=== PATIENT | male | born 1970 | race Caucasian/White ===

== ENCOUNTER → 2016-09-25 | Outpatient (CLI) | payer OTHER ==
--- NOTE | 2016-09-25 10:38 | REP ---
CHEST, TWO VIEWS: No comparison. PA and lateral views of the chest are performed. There is no acute infiltrate. The lungs appear clear. The heart is normal in size. There is tortuosity of the thoracic aorta. There are mild degenerative changes of the spine. IMPRESSION: No acute pulmonary disease. Signed by Dallas Regalado MD 09/25/2016 01:28 P
[2016-09-25 13:08] LABS: MEAN CORPUSCULAR HEMOGLOBIN 32.7 pg (27.0-33.0); MEAN CORPUSCULAR HGB CONC 34.5 g/dl (32.0-36.5); MEAN CORPUSCULAR VOLUME 94.8 fl (80.0-96.0); RED CELL DISTRIBUTION WIDTH 12.6 % (11.5-14.5); WHITE BLOOD COUNT 7.2 K/mm3 (4.0-10.0)
[2016-09-25 13:12] LABS: ANION GAP 10 MEQ/L (8-16); BLOOD UREA NITROGEN 20 MG/DL (7-18); CALCIUM LEVEL 8.8 MG/DL (8.5-10.1); CARBON DIOXIDE LEVEL 28 MEQ/L (21-32); CHLORIDE LEVEL 104 MEQ/L (98-107); CREATININE FOR GFR 1.27 MG/DL (0.70-1.30); GLOMERULAR FILTRATION RATE > 60.0 (>60); GLUCOSE, FASTING 66 MG/DL (70-105); POTASSIUM SERUM 4.2 MEQ/L (3.5-5.1); SODIUM LEVEL 142 MEQ/L (136-145)
[2016-09-25 13:13] LABS: INR 1.09
== END ==
LOC: M SMT 09:23
PROVIDERS: ATTEND Nurse Practitioner Women's Health
DX: R97.20 Elevated prostate specific antigen [PSA] (principal); Z01.818 Encounter for other preprocedural examination

== ENCOUNTER → 2016-10-13 | Day surgery (SDC) | payer OTHER ==
[~2016-10-13] VITALS: Ht 180.3 cm; Wt 99.8 kg
[~2016-10-13] MED LIST: BUPIVACAINE HCL 0.25% 30 ML VIAL As Ordered ONE; BUPIVACAINE HCL 0.25% 30 ML VIAL XX ONE; FISH1000 PO; LIDOCAINE 1% MDV 20ML VIAL As Ordered ONE; LIDOCAINE 1% SDV INJ 30 ML VIAL XX ONE; MIDAZOLAM INJ 2 MG/2 ML VIAL (J2250) As Ordered ONE; ONDANSETRON 4MG/2ML VIAL (J2405) As Ordered ONE; PROPOFOL 200 MG/20 ML VIAL As Ordered ONE; UNIS25TA2 PO; fentaNYL 100 MCG/2 ML INJECTION (J3010) As Ordered ONE
[2016-10-13 10:40] VITALS: BP 110/60
--- NOTE | 2016-10-13 10:54 | REP ---
Prostate sonography: History: Elevated PSA. Sonographic findings: Trans rectal prostate sonography demonstrates unremarkable seminal vesicles. Prostate gland is minimally enlarged . No peripheral zone nodule or lesions seen. Glandular dimensions are measured at 3.4 x 2.0 x 4.1 cm with a calculated glandular volume of 14.2 ml. Transrectal sonographic guidance provided to Dr. Parra who performed trans rectal ultrasound guided needle biopsy procedure . Signed by Toy Herzog MD 10/13/2016 10:46 A
--- NOTE | 2016-10-13 14:53 | RO ---
DATE OF PROCEDURE: 10/13/2016 PREPROCEDURE DIAGNOSIS: PSA elevation. POSTPROCEDURE DIAGNOSIS: PSA elevation. SURGERY PERFORMED: Transrectal ultrasound of the prostate guided biopsy with periprostatic nerve block. SURGEON: Jason Parra MD [employer]: None. ANESTHESIA: LMA. COMPLICATIONS: None. ESTIMATED BLOOD LOSS: N/A. HISTORY OF PRESENT ILLNESS: 46-year-old male patient with a history of PSA elevation. For this reason, he has consented to have a transrectal ultrasound prostate biopsy. DESCRIPTION OF PROCEDURE: With the patient in decubital lateral position under anesthesia, after introducing the transrectal ultrasound probe and finding the prostate gland, we found the prostatic seminal vesicle angle. We placed 5 mL of a mixture of Lidocaine 1% and Marcaine 0.25% to each prostatic seminal vesicle angle to perform a periprostatic nerve block. We then proceeded to actually do a 12 core prostate biopsy. We took biopsies from the base, base lateral, mid lateral, apex, apex lateral bilaterally. There were no complications of the surgery. Then we extracted the transrectal ultrasound probe and the patient will go home today. He will followup in one week. He will continue taking his antibiotic as prescribed. There were no complications during surgery.
== END | disposition home or self-care (01) ==
LOC: M SDC 06:35
PROVIDERS: ATTEND Urology
DX: R97.20 Elevated prostate specific antigen [PSA] (principal); Z80.42 Family history of malignant neoplasm of prostate; Z47.33 Aftercare following explantation of knee joint prosthesis; M10.9 Gout, unspecified
CPT/HCPCS: 55700; 64450; 76872; 76942; 76998; G0416; J0690; J2250; J2405; J3010

== ENCOUNTER → 2017-02-18 | Outpatient (CLI) | payer OTHER ==
[~2017-02-18] MED LIST changes: -BUPIVACAINE HCL 0.25% 30 ML VIAL As Ordered ONE; -BUPIVACAINE HCL 0.25% 30 ML VIAL XX ONE; -LIDOCAINE 1% MDV 20ML VIAL As Ordered ONE; -LIDOCAINE 1% SDV INJ 30 ML VIAL XX ONE; -MIDAZOLAM INJ 2 MG/2 ML VIAL (J2250) As Ordered ONE; -ONDANSETRON 4MG/2ML VIAL (J2405) As Ordered ONE; -PROPOFOL 200 MG/20 ML VIAL As Ordered ONE; -fentaNYL 100 MCG/2 ML INJECTION (J3010) As Ordered ONE
[2017-02-20 00:19] LABS: PSA % FREE 8.8 % (.); PSA FREE 0.38 ng/mL; PSA TOTAL 4.3 ng/mL (0.0-4.0)
== END ==
LOC: M SMT 12:09
PROVIDERS: ATTEND Urology
DX: R97.20 Elevated prostate specific antigen [PSA] (principal)

== ENCOUNTER → 2018-03-11 | Outpatient (CLI) | payer OTHER ==
[2018-03-12 15:28] LABS: PSA % FREE 7.2 % (.); PSA FREE 0.72 ng/mL
== END ==
LOC: M SMT 10:12
DX: R97.20 Elevated prostate specific antigen [PSA] (principal)
CPT/HCPCS: 84154

== ENCOUNTER → 2018-03-15 | Outpatient (CLI) | payer OTHER ==
[2018-03-15 14:14] LABS: ANION GAP 7 MEQ/L (8-16); BLOOD UREA NITROGEN 16 MG/DL (7-18); CALCIUM LEVEL 9.7 MG/DL (8.5-10.1); CARBON DIOXIDE LEVEL 30 MEQ/L (21-32); CHLORIDE LEVEL 106 MEQ/L (98-107); CREATININE FOR GFR 1.14 MG/DL (0.70-1.30); GLOMERULAR FILTRATION RATE > 60.0 (>60); GLUCOSE, FASTING 85 MG/DL (70-100); POTASSIUM SERUM 4.5 MEQ/L (3.5-5.1); SODIUM LEVEL 143 MEQ/L (136-145)
== END ==
LOC: M SMT 10:52
DX: R97.20 Elevated prostate specific antigen [PSA] (principal)
CPT/HCPCS: 80048

== ENCOUNTER → 2018-06-07 | Outpatient (CLI) | payer OTHER ==
[~2018-06-07] MED LIST changes: -FISH1000 PO; +ISOVUE-370 76% 100ML VIAL (Q9967) As Ordered; -UNIS25TA2 PO
== END ==
LOC: M RAD 08:21
DX: C61 Malignant neoplasm of prostate (principal)
CPT/HCPCS: Q9967

== ENCOUNTER → 2020-03-01 | Outpatient (CLI) | payer BC ==
[~2020-03-01] MED LIST changes: +FISH1000 PO; -ISOVUE-370 76% 100ML VIAL (Q9967) As Ordered; +UNIS25TA3 PO
== END ==
LOC: M PLALAB 11:14
PROVIDERS: ATTEND Nurse Practitioner Women's Health
DX: C61 Malignant neoplasm of prostate (principal)

== ENCOUNTER → 2020-06-11 | Outpatient (CLI) | payer BC, OTHER | LOC: M PLALAB 10:02 | PROVIDERS: ATTEND Nurse Practitioner Women's Health | DX: C61 Malignant neoplasm of prostate (principal) ==

== ENCOUNTER → 2020-09-23 | Outpatient (CLI) | payer BC | LOC: M PLALAB 11:57 | PROVIDERS: ATTEND Nurse Practitioner Women's Health | DX: Z85.46 Personal history of malignant neoplasm of prostate (principal) ==

== ENCOUNTER → 2020-09-27 | Outpatient (REF) | payer BC ==
[2020-09-27 12:27] LABS: ALBUMIN 4.1 GM/DL (3.2-5.2); ALT/SGPT 75 U/L (12-78); BILIRUBIN,TOTAL 0.6 MG/DL (0.2-1.0); BLOOD UREA NITROGEN 15 MG/DL (7-18); CALCIUM LEVEL 9.3 MG/DL (8.5-10.1); CARBON DIOXIDE LEVEL 29 MEQ/L (21-32); CHLORIDE LEVEL 105 MEQ/L (98-107); CHOLESTEROL LEVEL 238 MG/DL (<200); CHOLESTEROL RISK RATIO 4.958 (<5); CREATININE FOR GFR 1.14 MG/DL (0.70-1.30); GLOMERULAR FILTRATION RATE > 60.0 (>56); GLUCOSE, FASTING 84 MG/DL (70-100); HDL CHOLESTEROL 48 MG/DL (>40); LDL CHOLESTEROL 168 MG/DL (<100); NON-HDL-C 190 MG/DL; POTASSIUM SERUM 4.5 MEQ/L (3.5-5.1); SODIUM LEVEL 139 MEQ/L (136-145); TOTAL PROTEIN 7.3 GM/DL (6.4-8.2); TRIGLYCERIDES LEVEL 111 MG/DL (<150); URIC ACID 6.9 MG/DL (3.5-7.2)
== END ==
LOC: M SFHCCLAY 09:07
PROVIDERS: ATTEND Family Medicine
DX: E78.2 Mixed hyperlipidemia (principal); Z87.39 Personal history of other diseases of the musculoskeletal system and connective tissue

== ENCOUNTER → 2020-10-08 | Outpatient (CLI) | payer BC ==
--- NOTE | 2020-10-08 14:40 | REP ---
INDICATION: TEAR OF LEFT ROTATOR CUFF. COMPARISON: None. TECHNIQUE: Coronal oblique T1, T2 fat sat, sagittal oblique T2 fat sat, axial T2 fat sat, gradient echo. FINDINGS: Rotator cuff: Complete tears are noted of the supraspinatus and infraspinatus tendons. There is medial retraction of the musculotendinous junctions, at least 5 cm. There is a partial tear of the subscapularis tendon. Acromioclavicular joint: There is moderate hypertrophic degenerative change of the acromioclavicular joint. Erosive change is noted of the undersurface of the acromion due to a high riding humeral head. Acromion: Type 2 Biceps Tendon: Long head of the biceps tendon is displaced medially out of the bicipital groove. There is mild increased signal on T2 weighted images involving the proximal aspect of the tendon suggesting tendinitis or partial tear. Hill Sach's deformity: None. Deltoid muscle: No abnormal signal. Biceps labral complex: There is fraying of the biceps labral complex. Labrum: There is fraying, tearing and truncation of portions of the entire labrum. Cartilage: There is moderate diffuse chondromalacia at the glenohumeral joint. Bone marrow: No abnormal signal. Joint fluid: There is moderate joint effusion. There is a calcific body which is oval in shape located at the superior anterior margin of the humeral head measuring approximately 7 x 14 x 20 mm. IMPRESSION: Complete tears of supraspinatus and infraspinatus tendons with retraction. Partial tear subscapularis tendon. Moderate hypertrophic degenerative change acromioclavicular joint. Long head of the biceps tendon is displaced medially out of the bicipital groove, with findings suggesting tendinitis or partial tear of the proximal aspect. There is fraying of the biceps labral complex. There is fraying, tearing and truncation of portions of the entire labrum. Moderate chondromalacia glenohumeral joint. Moderate joint effusion. Calcific body at the anterior superior margin of the humeral head. <Electronically signed by Dallas Regalado > 10/08/20 [id number]
== END ==
LOC: M RAD 12:32
PROVIDERS: ATTEND Family Medicine
DX: M75.122 Complete rotator cuff tear or rupture of left shoulder, not specified as traumatic (principal); R29.898 Other symptoms and signs involving the musculoskeletal system; M94.212 Chondromalacia, left shoulder

== ENCOUNTER → 2021-03-04 | Outpatient (REF) | payer BC | LOC: M PLALAB 15:17 | PROVIDERS: ATTEND Nurse Practitioner Women's Health | DX: Z85.46 Personal history of malignant neoplasm of prostate (principal) ==

== ENCOUNTER → 2021-09-29 | Outpatient (CLI) | payer BC | LOC: M PLALAB 12:57 | PROVIDERS: ATTEND Nurse Practitioner Women's Health | DX: Z85.46 Personal history of malignant neoplasm of prostate (principal) ==

== ENCOUNTER → 2022-03-25 | Outpatient (CLI) | payer BC | LOC: M PLALAB 14:22 | PROVIDERS: ATTEND Nurse Practitioner Women's Health | DX: Z85.46 Personal history of malignant neoplasm of prostate (principal) ==

== ENCOUNTER → 2022-09-23 | Outpatient (CLI) | payer BC | LOC: M PLALAB 13:24 | PROVIDERS: ATTEND Nurse Practitioner Women's Health | DX: Z85.46 Personal history of malignant neoplasm of prostate (principal) ==

== ENCOUNTER → 2022-11-27 | Outpatient (REF) | payer BC ==
[2022-11-27 17:45] LABS: ALBUMIN 4.2 G/DL (3.2-5.2); ALKALINE PHOSPHATASE 74 U/L (46-116); ALT/SGPT 34 U/L (7.0-40); AST/SGOT 26 U/L (<34); BILIRUBIN,TOTAL 0.6 MG/DL (0.3-1.2); BLOOD UREA NITROGEN 17 MG/DL (9-23); CALCIUM LEVEL 9.4 MG/DL (8.5-10.1); CARBON DIOXIDE LEVEL 29 MMOL/L (20-31); CHLORIDE LEVEL 103 MMOL/L (98-107); CHOLESTEROL LEVEL 194 MG/DL (<200); CHOLESTEROL RISK RATIO 3.63 (<5); CREATININE FOR GFR 0.98 MG/DL (0.70-1.30); GLOMERULAR FILTRATION RATE > 60.0 (>56); GLUCOSE, FASTING 80 MG/DL (60-100); HDL CHOLESTEROL 53.4 MG/DL (>40); LDL CHOLESTEROL 122.8 MG/DL (<100); NON-HDL-C 140.6 MG/DL; POTASSIUM SERUM 4.6 MMOL/L (3.5-5.1); SODIUM LEVEL 140 MMOL/L (136-145); TRIGLYCERIDES LEVEL 89 MG/DL (<150)
== END ==
LOC: M SFHCCLAY 10:28
PROVIDERS: ATTEND Family Medicine
DX: E78.2 Mixed hyperlipidemia (principal)

== ENCOUNTER → 2022-12-10 | Outpatient (CLI) | payer BC ==
[~2022-12-10] MED LIST changes: +MULT-90 PO; +TADA5TAB; +[UNRECOGNIZED DRUG - CODE] IC
== END ==
LOC: M EKG 08:28
PROVIDERS: ATTEND Surgery
DX: G47.33 Obstructive sleep apnea (adult) (pediatric) (principal)

== ENCOUNTER → 2022-12-11 | Outpatient (CLI) | payer BC | LOC: M LABSMTC 09:05 | PROVIDERS: ATTEND Anesthesiology | DX: Z01.812 Encounter for preprocedural laboratory examination (principal); Z20.822 Contact with and (suspected) exposure to COVID-19 ==

== ENCOUNTER 2022-12-16 08:46 | Day surgery (SDC) | payer BC ==
[~2022-12-16] VITALS: Ht 182.9 cm; Wt 103.4 kg
[~2022-12-16 08:46] MED LIST changes: +CelecoXIB 400 MG CAP PO ONE; +LIDOCAINE 2% 100MG/5ML SDV (FOR ANES.) As Ordered ONE; +MIDAZOLAM INJ 2MG/2ML VIAL As Ordered ONE; +ROCURONIUM BROMIDE 50MG/5ML VIAL As Ordered ONE; -TADA5TAB; +TADA5TAB PO; +ceFAZolin SOD 2 GM in IV 1 EA IV ONE; +fentaNYL 250 MCG/5 ML INJECTION As Ordered ONE; +propofoL 200 MG/20 ML VIAL As Ordered ONE
[2022-12-16] MEDS ORDERED: LR 1,000 ML IV SCH ×2 (09:00→12:30)
[2022-12-16] MEDS ORDERED: BUPIVACAINE HCL 0.25% 30ML VIAL As Ordered ONE (09:46)
[2022-12-16] MEDS ORDERED: LIDOCAINE 1% SDV 30ML VIAL As Ordered ONE (09:46)
[2022-12-16] MEDS ORDERED: ROCURONIUM BROMIDE 50MG/5ML VIAL As Ordered ONE (10:30)
[2022-12-16] MEDS ORDERED: ACETAMINOPHEN 1000MG 100ML IV BAG As Ordered ONE (10:30)
[2022-12-16] MEDS ORDERED: KETOROLAC 60MG 2ML VIAL As Ordered ONE (10:30)
[2022-12-16] MEDS ORDERED: HYDROmorphone HCL 2MG/ML 1ML VIAL As Ordered ONE (10:30)
[2022-12-16] MEDS ORDERED: ONDANSETRON 4MG 2ML VIAL As Ordered ONE (10:30)
[2022-12-16] MEDS ORDERED: ePHEDrine SULFATE 25 MG/5 ML(5MG/ML) SYRINGE As Ordered ONE (10:58)
[2022-12-16] MEDS ORDERED: ONDANSETRON 4MG 2ML VIAL IV PRN (12:30)
[2022-12-16] MEDS ORDERED: HYDROMORPHONE HCL 0.5 MG/ 0.5 ML SYRINGE IV PRN (12:30)
[2022-12-16] MEDS ORDERED: fentaNYL 100 MCG/2 ML INJECTION IV PRN (12:30)
[2022-12-16] MEDS: oxyCODONE 5MG TAB PO PRN ×2 (13:28→13:58)
[2022-12-16 14:30] VITALS: BP 141/78
== END 2022-12-16 14:39 | disposition home or self-care (01) ==
LOC: M SDC 08:46
PROVIDERS: ATTEND Surgery
DX: K40.90 Unilateral inguinal hernia, without obstruction or gangrene, not specified as recurrent (principal); G47.33 Obstructive sleep apnea (adult) (pediatric); M10.9 Gout, unspecified; Z79.899 Other long term (current) drug therapy; Z85.46 Personal history of malignant neoplasm of prostate
CPT/HCPCS: 49650; C1781; J0131; J0690; J1100; J1170; J1885; J2250; J2405; J3010; S0020; S2900

== ENCOUNTER → 2023-02-02 | Outpatient (CLI) | payer BC ==
[~2023-02-02] MED LIST changes: -CelecoXIB 400 MG CAP PO ONE; +LIDOCAINE 1% MDV 20ML VIAL As Ordered ONE; -LIDOCAINE 2% 100MG/5ML SDV (FOR ANES.) As Ordered ONE; -MIDAZOLAM INJ 2MG/2ML VIAL As Ordered ONE; -ROCURONIUM BROMIDE 50MG/5ML VIAL As Ordered ONE; +[UNRECOGNIZED DRUG - CODE] IC; -ceFAZolin SOD 2 GM in IV 1 EA IV ONE; -fentaNYL 250 MCG/5 ML INJECTION As Ordered ONE; -propofoL 200 MG/20 ML VIAL As Ordered ONE
[2023-02-02 10:56] VITALS: BP 175/87
== END ==
LOC: M IRPRO 09:45
PROVIDERS: ATTEND Otolaryngology
DX: E04.1 Nontoxic single thyroid nodule (principal)

== ENCOUNTER → 2023-04-02 | Outpatient (CLI) | payer BC ==
[~2023-04-02] MED LIST changes: -LIDOCAINE 1% MDV 20ML VIAL As Ordered ONE
== END ==
LOC: M PLALAB 13:12
PROVIDERS: ATTEND Physician Assistant
DX: Z85.46 Personal history of malignant neoplasm of prostate (principal)

== ENCOUNTER → 2023-04-02 | Outpatient (CLI) | payer BC ==
[2023-04-02 15:54] LABS: FREE T4 1.22 NG/DL (0.89-1.76); THYROID PEROXIDASE ANTIBODY < 28.0 U/ML (<60.0); TOTAL T3 102.4 NG/DL (60.0-181.0)
== END ==
LOC: M PLALAB 13:09
PROVIDERS: ATTEND Otolaryngology
DX: E04.1 Nontoxic single thyroid nodule (principal)

== ENCOUNTER → 2023-07-19 | Outpatient (REF) | payer BC | LOC: M LAB REF 09:10 | PROVIDERS: ATTEND Ophthalmology | DX: D49.2 Neoplasm of unspecified behavior of bone, soft tissue, and skin (principal) ==

== ENCOUNTER → 2023-07-27 | Outpatient (CLI) | payer BC | LOC: M RAD 12:24 | PROVIDERS: ATTEND Otolaryngology | DX: E04.1 Nontoxic single thyroid nodule (principal) ==

== ENCOUNTER → 2023-10-21 | Outpatient (CLI) | payer BC | LOC: M PLALAB 15:22 | PROVIDERS: ATTEND Physician Assistant | DX: Z85.46 Personal history of malignant neoplasm of prostate (principal) ==

== ENCOUNTER → 2023-12-16 | Outpatient (REF) | payer BC ==
[2023-12-16 18:46] LABS: ALBUMIN 4.1 G/DL (3.2-5.2); ALKALINE PHOSPHATASE 69 U/L (46-116); ALT/SGPT 28 U/L (7.0-40); AST/SGOT 24 U/L (<34); BILIRUBIN,TOTAL 0.5 MG/DL (0.3-1.2); BLOOD UREA NITROGEN 17 MG/DL (9-23); CALCIUM LEVEL 9.7 MG/DL (8.5-10.1); CARBON DIOXIDE LEVEL 31 MMOL/L (20-31); CHLORIDE LEVEL 106 MMOL/L (98-107); CHOLESTEROL LEVEL 192 MG/DL (<200); CHOLESTEROL RISK RATIO 3.95 (<5); CREATININE FOR GFR 1.08 MG/DL (0.70-1.30); GLOMERULAR FILTRATION RATE > 60.0 (>56); GLUCOSE, FASTING 94 MG/DL (60-100); HDL CHOLESTEROL 48.5 MG/DL (>40); LDL CHOLESTEROL 118.5 MG/DL (<100); NON-HDL-C 143.5 MG/DL; POTASSIUM SERUM 4.4 MMOL/L (3.5-5.1); SODIUM LEVEL 138 MMOL/L (136-145); TOTAL PROTEIN 6.8 G/DL (5.7-8.2); TRIGLYCERIDES LEVEL 125 MG/DL (<150)
[2023-12-16 18:47] LABS: FREE T4 1.03 NG/DL (0.89-1.76)
[2023-12-16 18:48] LABS: THYROID STIMULATING HORMONE 0.735 uIU/ML (0.55-4.78); TOTAL T3 125.6 NG/DL (60.0-181.0)
== END ==
LOC: M SFHCCLAY 09:30
PROVIDERS: ATTEND Family Medicine
DX: E78.2 Mixed hyperlipidemia (principal); E04.1 Nontoxic single thyroid nodule

== ENCOUNTER → 2024-01-25 | Outpatient (CLI) | payer BC | LOC: M RAD 08:16 | PROVIDERS: ATTEND Otolaryngology | DX: E04.1 Nontoxic single thyroid nodule (principal) ==

== ENCOUNTER → 2024-06-12 | Outpatient (CLI) | payer BC | LOC: M CLY 14:36 | PROVIDERS: ATTEND Family Medicine | DX: M25.511 Pain in right shoulder (principal); M85.811 Other specified disorders of bone density and structure, right shoulder ==

== ENCOUNTER → 2024-07-06 | Outpatient (CLI) | payer BC | LOC: M CLY 14:20 | PROVIDERS: ATTEND Physician Assistant | DX: M17.11 Unilateral primary osteoarthritis, right knee (principal) ==

== ENCOUNTER → 2024-11-28 | Outpatient (CLI) | payer BC ==
[~2024-11-28] MED LIST changes: -TADA5TAB PO; +TADA5TAB94 PO
== END ==
LOC: M PLALAB 15:30
PROVIDERS: ATTEND Physician Assistant
DX: Z85.46 Personal history of malignant neoplasm of prostate (principal)

== ENCOUNTER → 2024-12-18 | Outpatient (REF) | payer BC ==
[2024-12-18 14:00] LABS: ALBUMIN 4.2 G/DL (3.2-5.2); ALKALINE PHOSPHATASE 70 U/L (40-129); ALT/SGPT 31 U/L (7.0-40); AST/SGOT 23 U/L (<34); BILIRUBIN,TOTAL 0.5 MG/DL (0.3-1.2); BLOOD UREA NITROGEN 17 MG/DL (9-23); CALCIUM LEVEL 9.4 MG/DL (8.5-10.1); CARBON DIOXIDE LEVEL 27 MMOL/L (20-31); CHLORIDE LEVEL 106 MMOL/L (98-107); CHOLESTEROL LEVEL 179 MG/DL (<200); CHOLESTEROL RISK RATIO 3.55 (<5); CREATININE FOR GFR 0.98 MG/DL (0.70-1.30); GLOMERULAR FILTRATION RATE > 60.0 (>56); GLUCOSE, FASTING 97 MG/DL (60-100); HDL CHOLESTEROL 50.4 MG/DL (>40); LDL CHOLESTEROL 109.4 MG/DL (<100); NON-HDL-C 128.6 MG/DL; POTASSIUM SERUM 4.3 MMOL/L (3.5-5.1); SODIUM LEVEL 141 MMOL/L (136-145); THYROID STIMULATING HORMONE 0.792 uIU/ML (0.55-4.78); TRIGLYCERIDES LEVEL 96 MG/DL (<150)
== END ==
LOC: M SFHCCLAY 08:37
PROVIDERS: ATTEND Family Medicine
DX: E04.1 Nontoxic single thyroid nodule (principal); E78.2 Mixed hyperlipidemia